=== PATIENT | female | born 1975 | race Hispanic/Latino ===

== ENCOUNTER 2018-02-14 12:39 | Emergency (ER) | payer OTHER ==
[~2018-02-14] VITALS: Ht 157.5 cm; Wt 74.4 kg
[~2018-02-14 12:39] MED LIST: AUGMENTIN 875-1 EACH PO; FLEXERIL10 MG PO; MASON NATURAL325 MG PO; PRILOSEC OTC20 M1 PO; PROTONIX 40MG T40 MG PO; ULTRAM(MONOGRAP50 MG PO; VITAMIN B-12100 MCG PO; ZOFRAN ODT4 M1 SL
[2018-02-14 12:47] VITALS: BP 109/70
--- NOTE | 2018-02-14 13:06 | ED GENERAL ADULT ---
History of Present Illness General Chief Complaint: General Adult Stated Complaint: HERE FOR 3RD RABIES SHOT Source: patient Exam Limitations: no limitations Vital Signs & Intake/Output Vital Signs & Intake/Output Vital Signs Date Time Temp Pulse Resp B/P B/P Pulse O2 O2 Flow FiO2 Mean Ox Delivery Rate 02/14 1247 98.1 88 16 109/70 99 Room Air Allergies Coded Allergies: hydrocodone (Intermediate, SOB 05/23/17) Reconcile Medications Amoxicillin/Potassium Clav (Augmentin 875-125 Tablet) 875 MG-125 MG TABLET 1 TAB PO BID animal bite Omeprazole Magnesium (Prilosec Otc) 20 MG TABLET.DR 1 TAB PO DAILY burning stomach Ondansetron (Zofran Odt) 4 MG TAB.RAPDIS 1 TAB SL TID PRN nausea Triage Note: RECEIVED 42 YO FEMALE RETURNS TODAY FOR HER 3RD RABIES SHOT. Triage Nurses Notes Reviewed? yes Onset: Abrupt Duration: day(s): Timing: single episode a week ago : No Patient currently breastfeeds: No HPI: 42-year-old otherwise healthy female presenting for her third rabies shot. Patient reports that one week ago she was bit on her right index finger by a squirrel. She was seen and evaluated in the emergency department at that time. She was given rabies immune globulin and her first rabies vaccine, and discharged home with Augmentin. She has been taking Augmentin as prescribed. She returned 3 days later for her second rabies vaccine. And returns now for her third rabies vaccine. Denies fevers, nausea, vomiting, purulent drainage/ redness from the finger, cough, headache. (Alida Santillan) Past History Travel History Traveled to [place] past 21 day No Medical History Any Pertinent Medical History? none Neurological: NONE EENT: NONE Cardiovascular: NONE Respiratory: NONE Gastrointestinal: NONE Hepatic: NONE Renal: NONE Musculoskeletal: NONE Psychiatric: NONE Endocrine: NONE Blood Disorders: NONE Cancer(s): NONE FITNESS SERVICES MANAGER/Reproductive: NONE Tetanus Vaccine: 02/07/18 Surgical History Surgical History: tubal ligation Psychosocial History What is your primary language Occitan Tobacco Use: Never used Family History Hx Contributory? No (Alida Santillan) Review of Systems Review of Systems Constitutional: Reports: no symptoms. EENTM: Reports: no symptoms. Respiratory: Reports: no symptoms. Cardiovascular: Reports: no symptoms. GI: Reports: no symptoms. Genitourinary: Reports: no symptoms. Musculoskeletal: Reports: no symptoms. Skin: Reports: no symptoms. Neurological/Psychological: Reports: no symptoms. Hematologic/Endocrine: Reports: no symptoms. Immunologic/Allergic: Reports: no symptoms. All Other Systems: Reviewed and Negative (Alida Santillan) Physical Exam Physical Exam General Appearance: well developed/nourished, no apparent distress, alert, awake , comfortable Comments: Gen.: Well-nourished, well-developed, no acute distress. Head: Normocephalic, atraumatic. Eyes: Normal inspection bilaterally Ears: Normal inspection bilaterally Nose: Normal inspection Neck: Normal inspection Lungs: clear to auscultation bilaterally, normnal breath sounds Heart: regular rate and rhythm Abdomen: soft and non-tender Extremities: Normal inspection Neurologic: alert and oriented x3, steady gait Skin: warm and dry, no evidence of bite ross to the fingers, no erythema or purulent drainage, normal hand exam Psychiatric: Normal mood and affect, no apparent delusions or hallucinations, behavior appropriate Core Measures ACS in differential dx? No CVA/TIA Diagnosis: No Sepsis Present: No Sepsis Focused Exam Completed? No (Alida Santillan) Progress Differential Diagnoses I considered the following diagnoses in my evaluation of the patient: [Encounter for rabies vaccine, low concern for cellulitis versus sepsis versus rabies] Plan of Care: Given third rabies vaccine. Instructed to continue Augmentin. Given strict return precautions. Will return in 7 days for her fourth and final rabies shot. Initial ED EKG: none (Alida Santillan) Departure Departure Disposition: HOME OR SELF CARE Condition: Stable Clinical Impression Primary Impression: Encounter for repeat administration of rabies vaccination Referrals: Dharmesh Villavicencio MD (PCP/Family) Additional Instructions: Return in 7 days for your fourth and final rabies shot. Follow-up with your primary care provider for reevaluation. Return to the emergency department for any new or worsening symptoms. Departure Forms: Customer Survey General Discharge Information (Alida Santillan) PA/MATERIAL DAMAGE APPRAISER Co-Sign Statement Statement: ED Attending supervision documentation- [] I saw and evaluated the patient. I have also reviewed all the pertinent lab results and diagnostic results. I agree with the findings and the plan of care as documented in the PA's/MATERIAL DAMAGE APPRAISER's documentation. [X] I have reviewed the ED Record and agree with the PA's/MATERIAL DAMAGE APPRAISER's documentation. [] Additions or exceptions (if any) to the PAs/MATERIAL DAMAGE APPRAISER's note and plan are summarized below: [] (Bob DAVID,Daryl Hastings) Critical Care Note Critical Care Note Critical Care Time: non-applicable (Glen EVANS,Alida)
== END 2018-02-14 13:15 ==
LOC: ERH 12:39
DX: Z23 Encounter for immunization (principal)
CPT/HCPCS: 90471; 99281

== ENCOUNTER 2018-02-21 19:11 | Emergency (ER) | payer OTHER ==
[2018-02-21 19:26] VITALS: BP 110/72
--- NOTE | 2018-02-21 20:03 | ED GENERAL ADULT ---
See Addendum History of Present Illness General Chief Complaint: General Adult Stated Complaint: LAST RABIES SHOT Source: patient Exam Limitations: no limitations Vital Signs & Intake/Output Vital Signs & Intake/Output Vital Signs Date Time Temp Pulse Resp B/P B/P Pulse O2 O2 Flow FiO2 Mean Ox Delivery Rate 02/21 1926 99.2 76 17 110/72 96 Room Air Allergies Coded Allergies: hydrocodone (Intermediate, SOB 05/23/17) Reconcile Medications Amoxicillin/Potassium Clav (Augmentin 875-125 Tablet) 875 MG-125 MG TABLET 1 TAB PO BID animal bite Omeprazole Magnesium (Prilosec Otc) 20 MG TABLET.DR 1 TAB PO DAILY burning stomach Ondansetron (Zofran Odt) 4 MG TAB.RAPDIS 1 TAB SL TID PRN nausea Triage Note: PT TO ED FOR FINAL RABIES VACCINE. Triage Nurses Notes Reviewed? yes : No Patient currently breastfeeds: No HPI: This is a 42-year-old female arriving the emergency department for final shot of rabies series which was initiated following a squirrel bite to her right second digit. She denies any symptoms or illness, her bite has healed well. (Estuardo Ovalle MD) Past History Travel History Traveled to [place] past 21 day No Medical History Any Pertinent Medical History? see below for history Neurological: NONE EENT: NONE Cardiovascular: NONE Respiratory: NONE Gastrointestinal: NONE Hepatic: NONE Renal: NONE Musculoskeletal: NONE Psychiatric: NONE Endocrine: NONE Blood Disorders: NONE Cancer(s): NONE GARDEN EQUIPMENT MECHANIC/Reproductive: NONE Tetanus Vaccine: 02/07/18 Surgical History Surgical History: tubal ligation Psychosocial History What is your primary language Fijian Tobacco Use: Never used Family History Hx Contributory? No (Estuardo Ovalle MD) Review of Systems Review of Systems Constitutional: Reports: no symptoms. All Other Systems: Reviewed and Negative (Estuardo Ovalle MD) Physical Exam Physical Exam General Appearance: well developed/nourished, no apparent distress, alert, awake , comfortable Comments: Well-appearing middle-aged female, no acute distress. Bite site is clean and well-healed. Cardiopulmonary exam within normal limits, abdominal exam benign. HEENT exam normal. Normal extremity exam. Core Measures ACS in differential dx? No CVA/TIA Diagnosis: No Sepsis Present: No Sepsis Focused Exam Completed? No (Estuardo Ovalle MD) Progress Differential Diagnoses I considered the following diagnoses in my evaluation of the patient: Low suspicion for rabies. Wound looks clean, decreasing the risk of wound infection. Patient status post tetanus vaccination with now tetanus symptoms. Plan of Care: Current Medications Sig/Francie Start time Last Medication Dose Stop Time Status Admin Rabies Vaccine 1 SYR ONCE ONE 02/22 2000 AC (Rabies (Vaccine) 02/21 2001 Inj (1ML)) Patient administered rabies vaccine, discharge home. Initial ED EKG: none (Estuardo Ovalle MD) Departure Departure Time of Disposition: 2001 Disposition: HOME OR SELF CARE Condition: Stable Clinical Impression Primary Impression: Rabies, need for prophylactic vaccination against Referrals: Dharmesh Villavicencio MD (PCP/Family) Additional Instructions: Thank you for coming to [facility]. You are now done with your rabies vaccination series. Please follow-up with your primary doctor as needed. Please return to the emergency department if you develop any new or worsening symptoms. Departure Forms: Customer Survey General Discharge Information (Estuardo Ovalle MD) Resident Co-Sign Statement Statement: ED Attending supervision documentation- [] I saw and evaluated the patient. I have also reviewed all the pertinent lab results and diagnostic results. I agree with the findings and the plan of care as documented in the Resident's documentation. [x] I have reviewed the ED Record and agree with the Resident's documentation. [] Additions or exceptions (if any) to the Resident's note and plan are summarized below: [] (Daryl Rojas DO (TBS)) Critical Care Note Critical Care Note Critical Care Time: non-applicable (Estuardo Ovalle MD)
== END 2018-02-21 20:15 ==
LOC: ERH 19:11
DX: Z23 Encounter for immunization (principal); Z20.3 Contact with and (suspected) exposure to rabies
CPT/HCPCS: 90471; 99281